=== PATIENT | male | born 1980 | race African-American/Black ===

== ENCOUNTER 2017-03-11 08:11 | Emergency (ER) | payer OTHER ==
--- NOTE | 2017-03-11 09:01 | ED Physician Documentation ---
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 tylenol relieves pain for most part Context: Fractured Tooth (many fractured teeth at gum line through out mouth) Associated Symptoms: sore throat, mild, moderate. 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 for unexplained reason-pt refers to her for some answers) Allergies/Adverse Reactions: Allergies Allergy/AdvReac Type Severity Reaction Status Date / Time No Known Allergies Allergy Verified 03/11/17 08:59 - SOCIAL HX Smoking History: non-smoker Alcohol Use: none Drug Use: none - FAMILY HX Family History: No - VITAL SIGNS Vital Signs: Vital Signs Temp Pulse Resp BP Pulse Ox 123/81 07/13/15 14:21 - REVIEWED ASSESSMENTS Nursing Assessment Reviewed: Yes Vitals Reviewed: Yes Dental Pain Physical Exam - EXAM General Appearance: mild distress, moderate distress Head/Neck: head nml inspection, trachea midline, thyroid nml. No: no lymphadenopathy, maxillary swelling (R), maxillary swelling (L) Eyes: eyes nml inspection Mouth/Throat: lips nml, voice nml, no drooling, no air way problems, no thrush, membranes nml, gum swelling around teeth (miracle upper srt but many teeth bad w/ many). No: gums nml, pharynx nml, dental tenderness Ear/Nose: nml inspection. No: TM erythema, loss of TM landmarks Respiratory: no resp. distress, breath sounds nml. No: respiratory distress, stridor, accessory muscle use CVS: reg. rate & rhythm, heart sounds nml Abdomen: soft, no distension, non-tender Extremities: non-tender, nml ROM Skin: warm/dry, normal color. No: cyanosis, diaphoresis, jaundice Neuro/Psych: other (slow to answer questions). No: weakness, numbness, anxiety Discharge Clincal Impression: dental sepsis Referrals: Primary Doctor,No [Primary Care Provider] - 2 Days Condition: Good Disposition: 01 HOME, SELF-CARE Decision to Admit: NO Decision Time: 09:01
[2017-03-11 09:08] VITALS: BP 142/91
== END 2017-03-11 09:06 | disposition home or self-care (01) ==
LOC: ED 08:11
DX: K02.9 Dental caries, unspecified (principal)
CPT/HCPCS: 99282

== ENCOUNTER 2018-04-27 16:45 | Emergency (ER) | payer MEDICARE, OTHER ==
--- NOTE | 2018-04-27 16:59 | ED Physician Documentation ---
General Adult - HISTORIAN Historian: patient - HPI Stated Complaint: dental pain Chief Complaint: Dental Pain Onset: days ago (2) Timing: still present Severity: mild Further Comments: yes (He is complianing of dental pain on left lower jaw x 2 days. No fever. He has tried OTC meds . He feels his jaw is swollen. He has had dental issues in the past . He is not sure if that side or the right side.) Last known Well Code/Unknown Code: Unknown - ROS CONST: no problems EYES/ENT: none CVS/RESP: none GI/: none MS/SKIN/LYMPH: denies: rash - PAST HX Past History: none Other History: none Immunizations: UTD Allergies/Adverse Reactions: Allergies Allergy/AdvReac Type Severity Reaction Status Date / Time No Known Allergies Allergy Verified 04/27/18 17:11 Home Medications: Ambulatory Orders Medication Instructions Recorded NK [NK] 04/27/18 - SOCIAL HX Smoking History: cigarettes Alcohol Use: none Drug Use: none - FAMILY HX Family History: No - VITAL SIGNS Vital Signs: Vital Signs Temp Pulse Resp BP Pulse Ox 142/91 03/11/17 09:06 - REVIEWED ASSESSMENTS Nursing Assessment Reviewed: Yes Vitals Reviewed: Yes General Adult Physical Exam - PHYSICAL EXAM GENERAL APPEARANCE: no distress EENT: eye inspection normal, ENT inspection normal, pharynx normal, no signs of dehydration, TM's nml, other (left lower jaw two broken teeth with white/yellow drainage ) RESPIRATORY: no resp distress, chest non-tender, breath sounds normal CVS: reg rate & rhythm, heart sounds normal, equal pulses, no murmur ABDOMEN: soft, normal bowel sounds BACK: normal inspection SKIN: warm/dry, normal color EXTREMITIES: non-tender, normal range of motion, no evidence of injury, no edema NEURO: oriented X3, CN's nml as tested, motor nml, sensation nml, mood/affect nml, cognition normal Discharge Clincal Impression: Dental caries Referrals: Primary Doctor,No [Primary Care Provider] - 2 Days Comments: 1. Warm salt water gargles 2. Tylenol or Ibuprofen for pain as directed 3. Amoxicillin 875 mg take 1 by mouth BID X 10 days 4. See Dentist MAMTA 5. See PCP in 2-4 days if needed for pain control 6. Return to ER for any further concerns Condition: Stable Disposition: 01 HOME, SELF-CARE Decision to Admit: NO Date of Decison to Admit: 04/27/18 Decision Time: 17:24
[2018-04-27] MEDS ORDERED: KETOROLAC TROMETHAMINE 60 MG/2 ML VIAL IM ONE (17:20)
[2018-04-27 17:44] VITALS: BP 119/62
== END 2018-04-27 17:22 | disposition home or self-care (01) ==
LOC: ED 16:45
DX: K02.9 Dental caries, unspecified (principal)
CPT/HCPCS: 96372; 99282; J1885

== ENCOUNTER 2018-10-24 02:33 | Emergency (ER) | payer MEDICARE, OTHER ==
[2018-10-24] MEDS ORDERED: ONDANSETRON HCL/PF 4 MG/ 2ML VIAL IVP ONE (03:02)
[2018-10-24] MEDS ORDERED: KETOROLAC TROMETHAMINE 30 MG/1ML VIAL IVP STA (03:03)
--- NOTE | 2018-10-24 03:49 | ED Physician Documentation ---
GI Bleed - HISTORIAN Historian: patient - HPI Stated Complaint: Rt flank/low back pain, reported abdominal pain to guardian/ N-V Chief Complaint: Flank Pain Additional Information: intro self as INSTRUMENT INSTALLER. pt presents to the ED via POV c/o Right flank pain 8/10 stabbing constant. pt reports chills, n/v/d x 12 hours. able to drink some fluids. pt denies current chest pain, dyspnea, syncope/near syncope, headache, dizziness, visual disturbances, fever, rash, sick contacts, dysuria, trauma. melena or hematochezia, bleeding or easy bruising, change in bowel or bladder function, no recent weight loss/gain, anxiety or depression. ROS Negative unless otherwise specified. Timing: still present - Associated Symptoms Abdominal Pain: cramping, diffuse - ROS CONST: chills - PAST HX Past History: other (bipolar, manic depression) Allergies/Adverse Reactions: Allergies Allergy/AdvReac Type Severity Reaction Status Date / Time No Known Allergies Allergy Verified 10/24/18 03:02 Home Medications: Ambulatory Orders Medication Instructions Recorded NK 04/27/18 - SOCIAL HX Smoking History: non-smoker Alcohol Use: none Drug Use: none - FAMILY HX Family History: none - VITAL SIGNS Vital Signs: Vital Signs Temp Pulse Resp BP Pulse Ox 97.9 F 68 20 122/60 100 10/24/18 02:34 10/24/18 06:49 10/24/18 06:49 10/24/18 06:49 10/24/18 02:34 - REVIEWED ASSESSMENTS Nursing Assessment Reviewed: Yes Vitals Reviewed: Yes Progress - Progress Progress: pt symptoms improved verbalized readiness for d/c ED Results Lab/Radiology - Lab Results Lab Results: Lab Results 10/24/18 10/24/18 03:20 03:20 WBC 11.40 K/ul K/ul (4.00-12.00) RBC 4.62 M/ul M/ul (3.90-5.20) Hgb 15.0 g/dL g/dL (12.0-18.0) Hct 45.0 % % (37.0-53.0) MCV 98.0 fl fl (80.0-100.0) MCH 32.6 pg pg (28.0-34.0) MCHC 33.1 g/dL g/dL (30.0-36.0) RDW 12.7 % % (11.3-14.3) Plt Count 206 K/mm3 K/mm3 (130-400) Neut % (Auto) 86.2 % H % (39.0-79.0) Lymph % (Auto) 8.1 % L % (16.0-50.0) [place] % (Auto) 3.6 % % (0.0-11.0) Eos % (Auto) 1.7 % % (0.0-6.8) Baso % (Auto) 0.4 (0.0-1.5) Neut # (Auto) 9.8 # k/uL H # k/uL (1.4-7.7) Lymph # (Auto) 0.9 # k/uL # k/uL (0.6-4.0) [place] # (Auto) 0.4 # k/uL # k/uL (0.0-0.9) Eos # (Auto) 0.2 # k/uL # k/uL (0.0-0.6) Baso # (Auto) 0.1 # k/uL # k/uL (0.0-0.5) Sodium 136 mmol/L mmol/L (136-145) Potassium 3.4 mmol/L L mmol/L (3.5-5.1) Chloride 103 mmol/L mmol/L (98-107) Carbon Dioxide 26 mmol/L mmol/L (22-30) BUN 20 mg/dL mg/dL (9-20) Creatinine 1.40 mg/dL H mg/dL (0.66-1.25) Estimated Creat Clear 72 Est GFR ( Amer) > 60 (60 - ) Est GFR (Non-Af Amer) 60 (60 - ) Glucose 169 mg/dL H mg/dL (74-106) Calcium 9.3 mg/dL mg/dL (8.4-10.2) Total Bilirubin 0.7 mg/dL mg/dL (0.2-1.3) AST 33 U/L U/L (15-46) ALT 32 U/L U/L (13-69) Alkaline Phosphatase 78 U/L U/L (38-126) Total Protein 7.3 g/dL g/dL (6.3-8.2) Albumin 4.7 g/dL g/dL (3.5-5.0) - Radiology Radiology Impressions: Report Submission Date: Oct 24, 2018 4:24:18 AM OUTBOUND CALL CENTER REPRESENTATIVE Patient Study Name: KASSANDRA GREY Date: Oct 24, 2018 3:38:01 AM OUTBOUND CALL CENTER REPRESENTATIVE Modality Type: DX Gender: M Description: ABDOMEN,PELVIS : 76 Institution: [facility] Physician: GLENDA GONZALES Abdominal KUB Clinical history: Right flank pain Findings: No abnormal calcifications identified. The bowel gas pattern is normal. Impression: Negative Electronically signed on Oct 24, 2018 4:24:18 AM OUTBOUND CALL CENTER REPRESENTATIVE by: Zhen Eduardo - Orders Orders: ED Orders Category Date Time Status Place IV Lock 1T Care 10/24/18 03:02 Active ABDOMEN 1VIEW [RAD] Stat Exams 10/24/18 Completed CBC/PLATELET/DIFF Stat Lab 10/24/18 03:20 Completed CMP [CMP] Stat Lab 10/24/18 03:20 Completed Ketorolac Tromethamine [Toradol] Med 10/24/18 03:03 Discontinued 30 mg IVP NOW STA Lidocaine 2%Visc 15ml [Xylocaine] Med 10/24/18 04:32 Discontinued 300 mg .ROUTE .STK-MED ONE Mag Hydrox/Aluminum Hyd/Simeth [Mylanta] Med 10/24/18 04:31 Discontinued 30 ml PO .STK-MED ONE Mag Hydrox/Aluminum Hyd/Simeth [Mylanta] 30 ml Med 10/24/18 04:25 Ordered Lidocaine 2%Visc 15ml [Xylocaine] 20 mg PHENobarb/HYOSCY/ATROPINE/SCOP [] 10 ml PO NOW Ondansetron HCl/Pf [Zofran 4 mg/2 ml] Med 10/24/18 03:02 Discontinued 4 mg IVP NOW ONE Abdominal Pain Physical Exam - Physical Exam General Appearance: alert, mild distress EENT: eye inspection normal, ENT inspection normal, pharynx normal, no signs of dehydration, KANE, no nystagmus, TM's nml NECK: normal inspection. No: lymphadenopathy RESPIRATORY: no resp distress, chest non-tender, breath sounds normal. No: wheezes, rales, rhonchi CVS: reg rate & rhythm, heart sounds normal, equal pulses, no murmur, no gallop, PMI nml, no JVD, no friction rub, 24 ABDOMEN: soft, no organomegaly, normal bowel sounds, no abdominal bruit, no distension, tenderness (diffuse) BACK: normal inspection, no CVA tenderness SKIN: normal color, warm/dry, NR, INT, PAL, DR EXTREMITIES: non-tender, normal range of motion, no evidence of injury, no edema, J, INSTRUMENT INSTALLER NEURO: oriented X3, motor nml, sensation nml Vital Signs: Vital Signs Temp Pulse Resp BP Pulse Ox 97.9 F 68 20 122/60 100 10/24/18 02:34 10/24/18 06:49 10/24/18 06:49 10/24/18 06:49 10/24/18 02:34 Discharge Clincal Impression: Gastroenteritis Referrals: Primary Doctor,No [Primary Care Provider] - 2 Days Condition: Good Disposition: 01 HOME, SELF-CARE Decision to Admit: NO Date of Decison to Admit: 10/24/18 Decision Time: 04:28
[2018-10-24] MEDS ORDERED: MAG HYDROX/ALUMINUM HYD/SIMETH 30 ML, Lidocaine 2%Visc 15ml 20 MG, PHENOBARB-HYOSCYAM-A... PO STA ×3 (04:25)
--- NOTE | 2018-10-24 04:27 | Diagnostic Imaging Report ---
GLENDA GONZALES [facility] [id number] [facility]ly [facility], [facility] [address] [address] Report Submission Date: Oct 24, 2018 4:24:18 AM PROJECTION CAMERA OPERATOR Patient Study Name: KASSANDRA GREY Date: Oct 24, 2018 3:38:01 AM PROJECTION CAMERA OPERATOR Modality Type: DX Gender: M Description: ABDOMEN,PELVIS : 76 Institution: [facility] Physician: GLENDA GONZALES Abdominal KUB Clinical history: Right flank pain Findings: No abnormal calcifications identified. The bowel gas pattern is normal. Impression: Negative Electronically signed on Oct 24, 2018 4:24:18 AM PROJECTION CAMERA OPERATOR by: Zhen MAYBERRY
[2018-10-24] MEDS ORDERED: MAG HYDROX/ALUMINUM HYD/SIMETH 30 ML UDC PO ONE (04:31)
[2018-10-24] MEDS ORDERED: LIDOCAINE HCL 2% VISC. ORAL 300MG/15ML UDC ONE (04:32)
[2018-10-24 06:53] VITALS: BP 122/60
[2018-10-24 07:19] LABS: MEAN CORPUSCULAR HEMOGLOBIN 32.6 pg (28.0-34.0)
[2018-10-24 07:20] LABS: BASOPHILS % 0.4 (0.0-1.5); EOSINOPHILS % 1.7 % (0.0-6.8); MONOCYTES % 3.6 % (0.0-11.0); NEUTROPHILS # 9.8 # k/uL (1.4-7.7)
[2018-10-24 07:21] LABS: eGFR (Non-African) 60
== END 2018-10-24 05:35 | disposition home or self-care (01) ==
LOC: ED 02:33
DX: K52.9 Noninfective gastroenteritis and colitis, unspecified (principal)
CPT/HCPCS: 36415; 74018; 80053; 85025; 96374; 96375; 99283; 99284; A9270; J1885; J2405; S1016

== ENCOUNTER 2019-03-09 19:42 | Emergency (ER) | payer MEDICARE, OTHER ==
--- NOTE | 2019-03-09 19:48 | ED Physician Documentation ---
Sore Throat/Dental Pain - HISTORIAN Historian: patient, parent - HPI Stated Complaint: dental pain Chief Complaint: Dental Pain Additional Information: Patient presents to ED with a 2 day history of right upper dental pain. Patient has a history of dental caries. Onset: days ago (2) Context: Fractured Tooth, Dental Caries Associated Symptoms: denies: fever, chills - ROS CONST: no problems CVS/RESP: none GI/: denies: nausea, vomiting MS/SKIN/LYMPH: denies: muscle aches NEURO/PSYCH: none - PAST HX Past History: none Allergies/Adverse Reactions: Allergies Allergy/AdvReac Type Severity Reaction Status Date / Time No Known Allergies Allergy Verified 03/09/19 19:53 Home Medications: Ambulatory Orders Medication Instructions Recorded Penicillin V Potassium [Pen V K] 500 mg PO Q8 #42 tablet 03/09/19 Tramadol HCl [Ultram] 50 mg PO Q8 #12 tablet 03/09/19 - SOCIAL HX Smoking History: non-smoker Alcohol Use: none Drug Use: none - FAMILY HX Family History: No - VITAL SIGNS Vital Signs: Vital Signs Temp Pulse Resp BP Pulse Ox 122/60 10/24/18 06:49 - REVIEWED ASSESSMENTS Nursing Assessment Reviewed: Yes Vitals Reviewed: Yes Dental Pain Physical Exam - EXAM General Appearance: no acute distress, alert Head/Neck: other. No: no lymphadenopathy, mandibular swelling (R), mandibular swelling (L), facial erythema Mouth/Throat: widespread dental decay (poor dentition, multiple dental fractures/caries) Ear/Nose: nml inspection Respiratory: no resp. distress, breath sounds nml CVS: reg. rate & rhythm, heart sounds nml Abdomen: soft, normal bowel sounds Extremities: non-tender Skin: warm/dry Neuro/Psych: none Discharge Clincal Impression: Dental caries Prescriptions: Penicillin V Potassium [Pen V K] 500 mg PO Q8 #42 tablet Tramadol HCl [Ultram] 50 mg PO Q8 #12 tablet Referrals: Primary Doctor,No [Primary Care Provider] - 2 Days Additional Instructions: 1. Tylenol and/or Ibuprofen as needed for pain. These may be taken with Tramadol 2. take antibiotic until gone 3. Salt/Baking soda rinses after every meal. 1 tsp salt, 1 tsp baking soda in 1 cup warm water 4. Follow up with Dentist as soon as possible 5. Return to ER for new or worsening symptoms Condition: Stable Disposition: 01 HOME, SELF-CARE Decision to Admit: NO Date of Decison to Admit: 03/09/19 Decision Time: 20:05
[2019-03-09 19:54] VITALS: BP 134/97
[2019-03-09] MEDS: AMOXICILLIN/POT 875/125 1 EACH PO ONE (20:00)
[2019-03-09] MEDS: traMADol HCL 50 MG TABLET PO ONE (20:00)
== END 2019-03-09 20:28 | disposition home or self-care (01) ==
LOC: ED 19:42
DX: K02.9 Dental caries, unspecified (principal)
CPT/HCPCS: 99283